=== PATIENT | female | born 1980 | race Caucasian/White ===

== ENCOUNTER 2016-10-10 19:05 | Emergency (ER) | payer OTHER ==
[2016-10-10] MEDS ORDERED: SODIUM CHLORIDE 0.9% 1,000 ML IV STA (19:57)
[2016-10-10] MEDS ORDERED: DICYCLOMINE 20 MG TAB PO STA (19:57)
[2016-10-10] MEDS ORDERED: ONDANSETRON 4 MG/2 ML VIAL IVP STA (19:57)
[2016-10-10] MEDS ORDERED: KETOROLAC 30 MG/ML 1 ML VIAL IVP STA (19:58)
--- NOTE | 2016-10-10 20:26 | ED ---
Abdominal Pain HPI - General Chief Complaint: Abdominal Pain Stated Complaint: [facility] Sent/Abd Pain/Into chest Time Seen by Provider: 10/10/16 19:41 Source: patient Mode of arrival: ambulatory Limitations: no limitations - History of Present Illness Initial Comments: The patient is a 36-year-old female who presents to ED with a chief complaint of abdominal pain. Patient states that she has had sporadic pain in her abdomen. She states that the pain often comes after she's had a meal. She states that the pain typically begins in the right upper quadrant and migrates to the epigastrium and up to the substernal region. Patient describes the pain as crampy in nature. The patient notes that today her pain was located in the right lower quadrant and then migrated up to the epigastric region. Patient is also complaining of pain along the left side of her face. She states that she believes that she may be suffering from chronic sinusitis. She feels as if there is a lot of pressure within her head. The patient does have a history of cholecystectomy. Patient denies any fevers or chills. Patient denies any nausea or vomiting. She states that she's been able to tolerate by mouth like normal. The patient denies any dysuria. She initially went to the [facility] , where she had a UA performed that demonstrated no evidence of infection. She also had a negative urine . The patient had an EKG performed that was within normal limits. - Related Data Home Medications Medication Instructions Recorded Confirmed ALPRAZolam [Xanax] 0.25 mg PO TID PRN 05/03/15 10/10/16 Levothyroxine Sodium [Synthroid] 25 mcg PO DAILY 05/03/15 10/10/16 Azithromycin [Zithromax Z-pack] See Taper PO DAILY 10/10/16 10/10/16 Citalopram Hydrobromide [CeleXA] 10 mg PO DAILY 10/10/16 10/10/16 Loratadine-Pseudoeph 10-240 mg 1 tab PO DAILY 10/10/16 10/10/16 [Claritin-D 24 Hr] Previous Rx's Medication Instructions Recorded Dicyclomine [Bentyl] 20 mg PO QID PRN #20 tablet 10/10/16 Allergies Allergy/AdvReac Type Severity Reaction Status Date / Time No Known Allergies Allergy Verified 10/10/16 19:39 Review of Systems ROS Statement: Those systems with pertinent positive or pertinent negative responses have been documented in the HPI. ROS Other: All systems not noted in ROS Statement are negative. Constitutional: Denies: fever, chills, weakness Eyes: Denies: eye pain, eye discharge, vision change ENT: Reports: ear pain (left ear), congestion. Denies: throat pain, dental pain , epistaxis Respiratory: Denies: cough, dyspnea, wheezes, hemoptysis Cardiovascular: Denies: chest pain, palpitations, dyspnea on exertion Endocrine: Denies: fatigue Gastrointestinal: Reports: abdominal pain. Denies: nausea, vomiting, diarrhea, constipation, hematemesis, melena Genitourinary: Denies: urgency, dysuria, frequency Musculoskeletal: Denies: back pain Skin: Denies: rash Neurological: Denies: headache, weakness, numbness, paresthesias Psychiatric: Denies: anxiety Past Medical History Past Medical History: GERD/Reflux, Skin Disorder, Thyroid Disorder Additional Past Medical History / Comment(s): migraines, psoriasis, has gallstones, resolving bronchitis-just finished prednisone,still on antibiotic, past hx. cat scratch fever History of Any Multi-Drug Resistant Organisms: None Reported Past Surgical History: Cholecystectomy Additional Past Surgical History / Comment(s): had surgery on upper thigh near groin to remove lump due to cat scratch fever Past Anesthesia/Blood Transfusion Reactions: No Reported Reaction Past Psychological History: Anxiety Smoking Status: Current some day smoker Past Alcohol Use History: Occasional Past Drug Use History: None Reported - Past Family History Mother Family Medical History: No Reported History General Exam Limitations: no limitations General appearance: alert, in no apparent distress Head exam: Present: atraumatic, normocephalic Eye exam: Present: normal appearance, PERRL Pupils: Present: normal accommodation ENT exam: Present: normal exam, normal oropharynx Neck exam: Present: normal inspection Respiratory exam: Present: normal lung sounds bilaterally. Absent: respiratory distress, wheezes, rales, rhonchi, stridor Cardiovascular Exam: Present: regular rate, normal rhythm GI/Abdominal exam: Present: soft. Absent: distended, tenderness, guarding, rebound, rigid Extremities exam: Present: normal inspection Back exam: Present: normal inspection Neurological exam: Present: alert, oriented X3 Psychiatric exam: Present: normal affect Skin exam: Present: warm, dry, intact Course Vital Signs 10/10/16 10/10/16 19:22 21:40 Temperature 98.2 F 98.6 F Pulse Rate 62 53 L Respiratory 16 18 Rate Blood Pressure 135/87 103/56 O2 Sat by Pulse 96 99 Oximetry Medical Decision Making - Medical Decision Making The patient is a 36-year-old female who presents to ED with a chief complaint of abdominal pain. Patient states that the pain is crampy in nature. Predominantly located in the right side of the abdomen with radiation in the epigastric region. Patient notes that the pain occurs after she eats meals. Patient no longer has a gallbladder. Patient denies any fevers or chills. Patient has been able to eat and drink as normal. Patient nontender on abdominal examination, noted to be gassy. Patient also complaining of left ear pain. On examination, patient appears to have no evidence of any ear infection. Patient does have slight effusion on the left side. Counseled patient that she is likely suffering from sinus congestion. Check CBC, BMP, mag. Check liver profile and lipase. Check ultrasound abdomen. Reviewed EKG and urinalysis from [facility]. Will order repeat EKG here. 9:31 PM Updated patient of overall findings, including normal Ultrasound Abdomen. Patient's CBD noted to be within normal limits. Patient counseled to follow-up with Gastroenterology. Patient provided with contract information for Dr. Gamboa , who is environmental health sanitarian today. Patient will be discharged for Bentyl to use at home q6 PRN. I have counseled the patient on how to use this medication appropriately. The patient has also been counseled to use Flonase to help with her sinus congestion. The patient notes that she is pain-free at the time of discharge. I have answered all of the patient's questions to her satisfaction. Encourage patient to return to the ED should her symptoms worsen. - Lab Data Result diagrams: 10/10/16 20:20 10/10/16 20:20 Lab Results 10/10/16 10/10/16 Range/Units 20:20 20:20 WBC 4.1 (3.8-10.6) k/uL RBC 4.31 (3.80-5.40) m/uL Hgb 13.6 (11.4-16.0) gm/dL Hct 38.5 (34.0-46.0) % MCV 89.5 (80.0-100.0) fL MCH 31.6 (25.0-35.0) pg MCHC 35.3 (31.0-37.0) g/dL RDW 12.1 (11.5-15.5) % Plt Count 188 (150-450) k/uL Neutrophils % 60 % Lymphocytes % 16 % Monocytes % 11 % Eosinophils % 6 % Basophils % 2 % Neutrophils # 2.5 (1.3-7.7) k/uL Lymphocytes # 0.7 L (1.0-4.8) k/uL Monocytes # 0.5 (0-1.0) k/uL Eosinophils # 0.3 (0-0.7) k/uL Basophils # 0.1 (0-0.2) k/uL Sodium 143 (137-145) mmol/L Potassium 4.0 (3.5-5.1) mmol/L Chloride 105 (98-107) mmol/L Carbon Dioxide 25 (22-30) mmol/L Anion Gap 13 mmol/L BUN 13 (7-17) mg/dL Creatinine 0.70 (0.52-1.04) mg/dL Est GFR (MDRD) Af Amer >60 (>60 ml/min/1.73 sqM) Est GFR (MDRD) Non-Af >60 (>60 ml/min/1.73 sqM) Glucose 82 (74-99) mg/dL Calcium 9.4 (8.4-10.2) mg/dL Magnesium 2.1 (1.6-2.3) mg/dL Total Bilirubin 0.5 (0.2-1.3) mg/dL AST 22 (14-36) U/L ALT 30 (9-52) U/L Alkaline Phosphatase 54 (38-126) U/L Total Protein 7.1 (6.3-8.2) g/dL Albumin 4.5 (3.5-5.0) g/dL Lipase 99 (23-300) U/L - EKG Data -: EKG Interpreted by Me 10/10/16 20:25 EKG demonstrates NSR. There are no concerning ST-T changes. The TN and QRS intervals are within normal limits. Disposition Clinical Impression: Abdominal pain Disposition: HOME SELF-CARE Condition: Good Instructions: Abdominal Pain (ED) Additional Instructions: Please return to the ED should you have worsening symptoms at home, particularly if associated with fever or chills. Prescriptions: Dicyclomine [Bentyl] 20 mg PO QID PRN #20 tablet PRN Reason: abdominal pain Referrals: Aldo Mario MD [Primary Care Provider] - 10/17/16 Shy Gamboa MD [STAFF PHYSICIAN] - 10/24/16 (Dr. Begum is a [employer]. I would recommend calling to schedule an appointment within the next two weeks) Time of Disposition: 21:31
[2016-10-10 20:42] LABS: ALT 30 U/L (9-52); AST 22 U/L (14-36); Alkaline Phosphatase 54 U/L (38-126); Anion Gap 13 mmol/L; Blood Urea Nitrogen 13 mg/dL (7-17); Calcium 9.4 mg/dL (8.4-10.2); Carbon Dioxide 25 mmol/L (22-30); Chloride 105 mmol/L (98-107); Glucose 82 mg/dL (74-99); Magnesium 2.1 mg/dL (1.6-2.3); Non-African American GFR(MDRD) >60 (>60 ml/min/1.73 sqM); Sodium 143 mmol/L (137-145); Total Bilirubin 0.5 mg/dL (0.2-1.3); Total Protein 7.1 g/dL (6.3-8.2)
[2016-10-10 20:43] LABS: CH 31.6; CHCM 35.5; HDW 2.37; HGB 13.6 gm/dL (11.4-16.0)
[2016-10-10 20:45] LABS: Basophils # (A) 0.1 k/uL (0-0.2); Basophils % (A) 2 %; Eosinophils # (A) 0.3 k/uL (0-0.7); Eosinophils % (A) 6 %; HCT 38.5 % (34.0-46.0); Luc # (Auto) 0.18; Luc % (Auto) 5; Lymphocytes # (A) 0.7 k/uL (1.0-4.8); Lymphocytes % (A) 16 %; MCH 31.6 pg (25.0-35.0); MCHC 35.3 g/dL (31.0-37.0); MCV 89.5 fL (80.0-100.0); Mean Platelet Volume 6.9; Monocytes # (A) 0.5 k/uL (0-1.0); Monocytes % (A) 11 %; Neutrophils # (A) 2.5 k/uL (1.3-7.7); Neutrophils % (A) 60 %; RBC 4.31 m/uL (3.80-5.40); RDW 12.1 % (11.5-15.5); WBC 4.1 k/uL (3.8-10.6); WBC (Perox) 4.16
--- NOTE | 2016-10-10 21:14 | US ---
EXAMINATION TYPE: US abdomen complete DATE OF EXAM: 10/10/2016 8:50 PM COMPARISON: 11/02/2013 CLINICAL HISTORY: abdominal pain. RLQ pain that radiates up through chest, cholecystectomy 2014 EXAM MEASUREMENTS: Liver Length: 17.2cm Gallbladder Wall: N/A cm CBD: 0.3cm Spleen: 10.9cm Right Kidney: 11.4 x 5.0 x 4.2cm Left Kidney: 11.6 x 4.9 x 5.3cm TECHNOLOGIST IMPRESSION: Pancreas: wnl Liver: wnl Gallbladder: Surgically absent Evidence for sonographic Petersen's sign: no CBD: wnl Spleen: wnl Right Kidney: wnl Left Kidney: wnl Upper IVC: wnl Abd Aorta: wnl The liver is homogenous. The intrahepatic portion of the IVC and proximal abdominal aorta are within normal limits. There is no evidence of cholelithiasis. Common bile duct is unremarkable. The visu alized portions of the pancreas are homogenous. The spleen is unremarkable. Kidneys are symmetric a nd free of hydronephrosis. No renal lesions are seen. IMPRESSION: Negative complete abdominal sonogram. No dilated ducts. No adverse change compared to old exam.
[2016-10-10 21:51] VITALS: BP 103/56; PULSE 53; RESP 18; TEMP 98.6
== END 2016-10-10 21:40 | disposition home or self-care (01) ==
LOC: EC 19:05
DX: R10.13 Epigastric pain (principal); R09.81 Nasal congestion; E07.9 Disorder of thyroid, unspecified; F17.200 Nicotine dependence, unspecified, uncomplicated; Z79.899 Other long term (current) drug therapy
CPT/HCPCS: 36415; 93005; 80053; 83690; 83735; 85025; 76700; 99284; 96374; 96375; 96361; J2405; J1885

== ENCOUNTER 2016-11-07 20:48 | Emergency (ER) | payer OTHER ==
[2016-11-07 20:59] VITALS: RESP 18
[2016-11-07] MEDS ORDERED: FAMOTIDINE 20 MG/2 ML VIAL IV STA (21:36)
--- NOTE | 2016-11-07 21:37 | ED ---
General Adult HPI - General Chief complaint: Abdominal Pain Stated complaint: abdominal pain Time Seen by Provider: 11/07/16 21:03 Source: patient, RN notes reviewed, old records reviewed Mode of arrival: ambulatory Limitations: no limitations - History of Present Illness Initial comments: 36-year-old female with history of recurrent abdominal pain presenting for abdominal pain and nausea. Patient states that this began shortly after eating this evening. States that it reached intensity and then improved. She states she then had return of the pain and came to the ED. She states she has some nausea associated but has not vomited. Patient states that similar recurrent abdominal pain over the past 2-4 years. She does have a history of cholecystectomy. She's never had an EGD. She's not currently taking any medications other than Bentyl when necessary - Related Data Home Medications Medication Instructions Recorded Confirmed ALPRAZolam [Xanax] 0.25 mg PO TID PRN 05/03/15 10/10/16 Levothyroxine Sodium [Synthroid] 25 mcg PO DAILY 05/03/15 10/10/16 Azithromycin [Zithromax Z-pack] See Taper PO DAILY 10/10/16 10/10/16 Citalopram Hydrobromide [CeleXA] 10 mg PO DAILY 10/10/16 10/10/16 Loratadine-Pseudoeph 10-240 mg 1 tab PO DAILY 10/10/16 10/10/16 [Claritin-D 24 Hr] Previous Rx's Medication Instructions Recorded Dicyclomine [Bentyl] 20 mg PO QID PRN #20 tablet 10/10/16 Dicyclomine [Bentyl] 20 mg PO QID PRN #16 tablet 11/07/16 Omeprazole 20 mg PO DAILY #30 cap 11/07/16 Allergies Allergy/AdvReac Type Severity Reaction Status Date / Time No Known Allergies Allergy Verified 11/07/16 20:59 Review of Systems ROS Statement: Those systems with pertinent positive or pertinent negative responses have been documented in the HPI. ROS Other: All systems not noted in ROS Statement are negative. Past Medical History Past Medical History: GERD/Reflux, Skin Disorder, Thyroid Disorder Additional Past Medical History / Comment(s): migraines, psoriasis, has gallstones, resolving bronchitis-just finished prednisone,still on antibiotic, past hx. cat scratch fever History of Any Multi-Drug Resistant Organisms: None Reported Past Surgical History: Cholecystectomy Additional Past Surgical History / Comment(s): had surgery on upper thigh near groin to remove lump due to cat scratch fever Past Anesthesia/Blood Transfusion Reactions: No Reported Reaction Past Psychological History: Anxiety Smoking Status: Current some day smoker Past Alcohol Use History: Occasional Past Drug Use History: None Reported - Past Family History Mother Family Medical History: No Reported History General Exam - General Exam Comments Initial Comments: General: Awake and Alert. No acute distress. Does not appear acutely ill. Eyes: WESLEY, EOM intact. No nystagmus. No scleral icterus. HENT: Atraumatic, normocephalic. Mucous membranes moist. Trachea midline. Neck: The neck is supple, there is no tenderness or JVD. Cardiovascular: Regular rate and rhythm. No murmur, rub, or gallop is appreciated. Distal pulses intact. Respiratory: Lungs are clear to auscultation bilaterally. No wheezes, rales, rhonchi. No respiratory distress. Gastrointestinal: Soft, mild epigastric tenderness. No rebound or guarding. Non -distended. No masses or organomegaly noted. No CVA tenderness. Musculoskeletal: No tenderness. Normal ROM. No gross deformity. No strength deficits. Neurological: A&Ox3. CN II-XII grossly intact, There are no obvious motor or sensory deficits. Coordination appears grossly intact. Speech is normal. Skin: Skin is warm and dry and no rashes or lesions are noted. Psychiatric: Cooperative, appropriate mood & affect, normal judgment. Limitations: no limitations Course Vital Signs 11/07/16 11/07/16 11/07/16 20:58 22:30 23:12 Temperature 98.1 F 98.5 F 97.9 F Pulse Rate 82 76 74 Respiratory 18 18 18 Rate Blood Pressure 123/82 115/70 125/80 O2 Sat by Pulse 97 100 100 Oximetry Medical Decision Making - Medical Decision Making 36-year-old female presenting for recurrent abdominal pain. Initial exam with mild epigastric tenderness but no evidence of acute peritonitis. Patient recently was seen for workup in September including abdominal ultrasound which was unremarkable. Patient without any significant pain on exam, and declines any pain medications. Was given IV fluids and Pepcid. Laboratory grossly unremarkable. LFTs within normal limits. Lipase negative. Patient reevaluated and remained stable. No active pain at this time. Had long discussion about possible etiologies of abdominal pain. Discussed importance of continued outpatient follow-up with GI and PCP. Patient states she is at a point with Dr. Gamboa coming up in 2 weeks. Discussion she will likely require an EGD and further outpatient testing. Discussed starting her on omeprazole at this time for possible underlying gastritis. Discussed using Bentyl as needed, Rx refill provided. Discussed concerning signs symptoms for immediate return to the ED. Patient is agreeable with plan and discharge home. - Lab Data Result diagrams: 11/07/16 21:40 11/07/16 21:40 Lab Results 11/07/16 11/07/16 11/07/16 Range/Units 21:40 21:40 22:00 WBC 5.3 (3.8-10.6) k/uL RBC 4.71 (3.80-5.40) m/uL Hgb 14.8 (11.4-16.0) gm/dL Hct 43.0 (34.0-46.0) % MCV 91.2 (80.0-100.0) fL MCH 31.4 (25.0-35.0) pg MCHC 34.5 (31.0-37.0) g/dL RDW 11.9 (11.5-15.5) % Plt Count 196 (150-450) k/uL Neutrophils % 68 % Lymphocytes % 19 % Monocytes % 4 % Eosinophils % 4 % Basophils % 1 % Neutrophils # 3.6 (1.3-7.7) k/uL Lymphocytes # 1.0 (1.0-4.8) k/uL Monocytes # 0.2 (0-1.0) k/uL Eosinophils # 0.2 (0-0.7) k/uL Basophils # 0.0 (0-0.2) k/uL Sodium 144 (137-145) mmol/L Potassium 3.5 (3.5-5.1) mmol/L Chloride 104 (98-107) mmol/L Carbon Dioxide 27 (22-30) mmol/L Anion Gap 13 mmol/L BUN 9 (7-17) mg/dL Creatinine 0.76 (0.52-1.04) mg/dL Est GFR (MDRD) Af Amer >60 (>60 ml/min/1.73 sqM) Est GFR (MDRD) Non-Af >60 (>60 ml/min/1.73 sqM) Glucose 73 L (74-99) mg/dL Calcium 9.4 (8.4-10.2) mg/dL Total Bilirubin 0.5 (0.2-1.3) mg/dL AST 22 (14-36) U/L ALT 25 (9-52) U/L Alkaline Phosphatase 57 (38-126) U/L Total Protein 8.0 (6.3-8.2) g/dL Albumin 5.1 H (3.5-5.0) g/dL Lipase 163 (23-300) U/L Urine Color Urine Appearance (Clear) Urine pH (5.0-8.0) Ur Specific [place] (1.001-1.035) Urine Protein (Negative) Urine Glucose (UA) (Negative) Urine Ketones (Negative) Urine Blood (Negative) Urine Nitrite (Negative) Urine Bilirubin (Negative) Urine Urobilinogen (<2.0) mg/dL Ur Leukocyte Esterase (Negative) Urine HCG, Qual Not Detected (Not Detectd) 11/07/16 Range/Units 22:00 WBC (3.8-10.6) k/uL RBC (3.80-5.40) m/uL Hgb (11.4-16.0) gm/dL Hct (34.0-46.0) % MCV (80.0-100.0) fL MCH (25.0-35.0) pg MCHC (31.0-37.0) g/dL RDW (11.5-15.5) % Plt Count (150-450) k/uL Neutrophils % % Lymphocytes % % Monocytes % % Eosinophils % % Basophils % % Neutrophils # (1.3-7.7) k/uL Lymphocytes # (1.0-4.8) k/uL Monocytes # (0-1.0) k/uL Eosinophils # (0-0.7) k/uL Basophils # (0-0.2) k/uL Sodium (137-145) mmol/L Potassium (3.5-5.1) mmol/L Chloride (98-107) mmol/L Carbon Dioxide (22-30) mmol/L Anion Gap mmol/L BUN (7-17) mg/dL Creatinine (0.52-1.04) mg/dL Est GFR (MDRD) Af Amer (>60 ml/min/1.73 sqM) Est GFR (MDRD) Non-Af (>60 ml/min/1.73 sqM) Glucose (74-99) mg/dL Calcium (8.4-10.2) mg/dL Total Bilirubin (0.2-1.3) mg/dL AST (14-36) U/L ALT (9-52) U/L Alkaline Phosphatase (38-126) U/L Total Protein (6.3-8.2) g/dL Albumin (3.5-5.0) g/dL Lipase (23-300) U/L Urine Color Light Yellow Urine Appearance Clear (Clear) Urine pH 5.5 (5.0-8.0) Ur Specific [place] 1.005 (1.001-1.035) Urine Protein Negative (Negative) Urine Glucose (UA) Negative (Negative) Urine Ketones Negative (Negative) Urine Blood Negative (Negative) Urine Nitrite Negative (Negative) Urine Bilirubin Negative (Negative) Urine Urobilinogen <2.0 (<2.0) mg/dL Ur Leukocyte Esterase Negative (Negative) Urine HCG, Qual (Not Detectd) Disposition Clinical Impression: Nonspecific abdominal pain Disposition: HOME SELF-CARE Condition: Stable Instructions: Abdominal Pain (ED), Gastritis (ED) Prescriptions: Dicyclomine [Bentyl] 20 mg PO QID PRN #16 tablet PRN Reason: abdominal pain Omeprazole 20 mg PO DAILY #30 cap Referrals: Aldo Mario MD [Primary Care Provider] - 1-2 days Shy Gamboa MD [STAFF PHYSICIAN] - 1-2 days Time of Disposition: 23:12
[2016-11-07 21:55] LABS: Basophils % (A) 1 %; CH 31.6; CHCM 34.8; Eosinophils # (A) 0.2 k/uL (0-0.7); Eosinophils % (A) 4 %; HDW 2.34; HGB 14.8 gm/dL (11.4-16.0); Luc # (Auto) 0.22; Luc % (Auto) 4; Lymphocytes % (A) 19 %; MCH 31.4 pg (25.0-35.0); MCHC 34.5 g/dL (31.0-37.0); MCV 91.2 fL (80.0-100.0); Monocytes # (A) 0.2 k/uL (0-1.0); Monocytes % (A) 4 %; Neutrophils # (A) 3.6 k/uL (1.3-7.7); Neutrophils % (A) 68 %; RBC 4.71 m/uL (3.80-5.40); RDW 11.9 % (11.5-15.5); WBC 5.3 k/uL (3.8-10.6); WBC (Perox) 5.37
[2016-11-07 22:01] LABS: ALT 25 U/L (9-52); AST 22 U/L (14-36); Alkaline Phosphatase 57 U/L (38-126); Anion Gap 13 mmol/L; Blood Urea Nitrogen 9 mg/dL (7-17); Calcium 9.4 mg/dL (8.4-10.2); Carbon Dioxide 27 mmol/L (22-30); Chloride 104 mmol/L (98-107); Glucose 73 mg/dL (74-99); Non-African American GFR(MDRD) >60 (>60 ml/min/1.73 sqM); Potassium 3.5 mmol/L (3.5-5.1); Sodium 144 mmol/L (137-145); Total Bilirubin 0.5 mg/dL (0.2-1.3)
[2016-11-07 22:09] LABS: Appearance,Urine Clear (Clear); Bilirubin,Urine Negative (Negative); Glucose,Urine (UA) Negative (Negative); Ketones,Urine Negative (Negative); Leukocyte Esterase,Urine Negative (Negative); Nitrite,Urine Negative (Negative); PH, Urine 5.5 (5.0-8.0); Protein,Urine Negative (Negative); Specific Gravity,Urine 1.005 (1.001-1.035); UA Billing (MACRO vs. MICRO) CHEM; Urobilinogen,Urine <2.0 mg/dL (<2.0)
[2016-11-07 23:12] VITALS: BP 125/80; PULSE 74; TEMP 97.9
== END 2016-11-07 23:31 | disposition home or self-care (01) ==
LOC: EC 20:48
DX: R10.9 Unspecified abdominal pain (principal); Z79.899 Other long term (current) drug therapy; F17.200 Nicotine dependence, unspecified, uncomplicated
CPT/HCPCS: 36415; 80053; 81003; 81025; 83690; 85025; 96374; 99284

== ENCOUNTER 2016-12-24 10:20 | Day surgery (SDC) | payer OTHER ==
[2016-12-19 13:25] VITALS: BMI 21.7
[~2016-12-24 10:20] MED LIST: LACTATED RINGERS 1,000 ML IV SCH; LIDOCAINE 1% 20 ML VIAL (10MG/ML) FOR IV START INTRADERMA PRN
[2016-12-24 10:52] VITALS: RESP 16; TEMP 98.7
[2016-12-24] MEDS ORDERED: PROPOFOL 10 MG/ML 20 ML VIAL IV ONE (11:55)
[2016-12-24] MEDS ORDERED: LIDOCAINE 1% INJ 10MG/ML (20 ML MDV) ONE (11:55)
[2016-12-24] MEDS ORDERED: GLYCOPYRROLATE 0.2 MG/ML 2 ML VIAL ONE (11:55)
--- NOTE | 2016-12-24 12:12 | P.PCN ---
Date of Procedure: 12/24/16 Procedure(s) Performed: Brief history: Patient is a pleasant 86-year-old white female, scheduled for an elective upper endoscopy as well as colonoscopy as a part of evaluation of abdominal pain, abdominal bloating and change in bowel habits for the last several years duration. Lately her symptoms have been progressively getting worse. Pain is mostly in epigastric and right upper quadrant area and occasionally radiates into the chest and back. She has some nausea but no emesis. Has rectal urgency and occasional diarrhea. She is hence scheduled for an upper endoscopy as well as colonoscopy to evaluate further. Procedure performed: Esophagogastroduodenoscopy with biopsy Colonoscopy with biopsy Preoperative diagnosis: Epigastric, right upper quadrant abdominal pain Abdominal bloating and change in bowel habits Anesthesia: MAC Procedure: After informed consent was obtained from the patient was brought into the endoscopy unit and IV sedation was administered by anesthesia under continuous monitoring. Initially upper endoscopy was done. The Olympus GF 160 video endoscope was inserted inserted into the mouth and esophagus intubated without any difficulty and was gradually advanced into the stomach and duodenum and carefully examined. The bulb and second part of the duodenum appeared normal. Biopsies were done from this area to rule out celiac disease. The scope was then withdrawn into the stomach adequately insufflated with air and upon careful examination the antrum had mild gastritis and biopsies were done from this area. The body, cardia and fundus appeared normal. The scope was then withdrawn into the esophagus. Small hiatal hernia noted. The GE junction was located at 35 cm to the incisors. There was a short tongue of Villela's appearing mucosa extending proximal to the GE junction and this was biopsied. Rest of the esophagus appeared normal. Patient tolerated the procedure well. At this time the patient continued to remain sedation. Initial digital rectal examination was normal. Olympus CF 160 video colonoscope was then inserted into the rectum and gradually advanced to the cecum without any difficulty. Careful examination was performed as the scope was gradually being withdrawn. The prep was excellent. The cecum, ascending colon, transverse colon, descending colon, sigmoid colon and rectum appeared normal. Random biopsies were done from ascending and descending colon to rule out Ashok scope/ collagenous colitis. Retroflexion was performed in the rectum and no lesions were noted. Patient tolerated the procedure well. Impression: 1. Upper endoscopy revealed mild gastritis, small hiatal hernia and short segment Villela's esophagus 2. Colonoscopy was essentially within normal limits with no evidence of colitis or colorectal neoplasia Recommendations: Findings of this examination were discussed with the patient as well as her family. She was advised to follow with the biopsy results. She will be seen in the office in 3 weeks.
[2016-12-24 12:42] VITALS: BP 113/79; PULSE 66
== END 2016-12-24 13:05 | disposition home or self-care (01) ==
LOC: ORWHC2ENDO 10:20
PROVIDERS: ATTEND Internal Medicine Gastroenterology
DX: K44.9 Diaphragmatic hernia without obstruction or gangrene (principal); K29.50 Unspecified chronic gastritis without bleeding; K22.70 Barrett's esophagus without dysplasia; R19.4 Change in bowel habit; F17.200 Nicotine dependence, unspecified, uncomplicated; E07.9 Disorder of thyroid, unspecified; F32.9 Major depressive disorder, single episode, unspecified; K21.9 Gastro-esophageal reflux disease without esophagitis; Z79.899 Other long term (current) drug therapy
CPT/HCPCS: 81025; 88305; 88342; 45380; 43239; J2001; J2704

== ENCOUNTER 2019-10-19 08:28 | Day surgery (SDC) | payer OTHER ==
[2019-10-14 14:44] VITALS: BMI 22.6
[~2019-10-19 08:28] MED LIST changes: +LIDOCAINE 1% (10MG/ML) FOR IV START INTRADERMA PRN; -LIDOCAINE 1% 20 ML VIAL (10MG/ML) FOR IV START INTRADERMA PRN
[2019-10-19 08:53] VITALS: TEMP 96.8
[2019-10-19] MEDS ORDERED: LIDOCAINE 1% INJ 10MG/ML (20 ML MDV) ONE (09:15)
[2019-10-19] MEDS ORDERED: PROPOFOL 10 MG/ML 20 ML VIAL IV ONE (09:15)
--- NOTE | 2019-10-19 09:27 | P.PCN ---
Date of Procedure: 10/19/19 Procedure(s) Performed: BRIEF HISTORY: Patient is a 39-year-old, pleasant, white female, scheduled for an upper endoscopy as a part of evaluation of GERD/intermittent chest pain and abdominal bloating. Last EGD 2 years ago showed short segment Villela's esophagus. PROCEDURE PERFORMED: Esophagogastroduodenoscopy with biopsy. PREOPERATIVE DIAGNOSIS: Surveillance Of Villela's esophagus. IV sedation per anesthesia. PROCEDURE: After informed consent was obtained, the patient was brought into the endoscopy unit. IV sedation was administered by Anesthesia under continuous monitoring. Initially the Olympus GIF-140 video endoscope was inserted into the mouth. Esophagus intubated without any difficulty. It was gradually advanced into the stomach and duodenum and carefully examined. The bulb and the second part of the duodenum appeared normal. Biopsies were done from this area to rule out celiac disease. The scope at this time was withdrawn to the stomach, adequately insufflated with air, and upon careful examination, mucosa of the antrum, body, cardia and the fundus appeared normal. The scope was then withdrawn into the esophagus. The GE junction was located at 35 cm from the incisors. There was a 1 cm flat appearing mucosa extending proximal to the GE junction which was biopsied. Also there was a superficial erosion at the GE junction consistent with LA grade a reflux esophagitis. The rest of esophagus appeared normal and the patient tolerated the procedure well. IMPRESSION: 1. Short segment Villela's esophagus status post biopsy. 2. Small hiatal hernia and LA grade a reflux esophagitis 3 Mild antral gastritis.. RECOMMENDATIONS: The findings of this examination were discussed with the patientas well as her family. She was advised to continue with omeprazole 20 mg daily half hour before dinnertime and follow antireflux measures. She can have a repeat upper endoscopy in 2-3 years..
[2019-10-19 10:03] VITALS: BP 117/83; PULSE 66; RESP 16
== END 2019-10-19 10:20 | disposition home or self-care (01) ==
LOC: ORWHC2ENDO 08:28
PROVIDERS: ATTEND Internal Medicine Gastroenterology
DX: K22.70 Barrett's esophagus without dysplasia (principal); K29.50 Unspecified chronic gastritis without bleeding; K21.0 Gastro-esophageal reflux disease with esophagitis; K44.9 Diaphragmatic hernia without obstruction or gangrene; F41.9 Anxiety disorder, unspecified; G43.909 Migraine, unspecified, not intractable, without status migrainosus; L40.9 Psoriasis, unspecified; K58.9 Irritable bowel syndrome, unspecified; F17.210 Nicotine dependence, cigarettes, uncomplicated; Z79.899 Other long term (current) drug therapy
CPT/HCPCS: 81025; 88305; 43239; J2001; J2704

== ENCOUNTER → 2022-09-17 | Outpatient (CLI) | payer OTHER ==
--- NOTE | 2022-09-17 09:06 | US ---
EXAMINATION TYPE: US abdomen complete DATE OF EXAM: 09/17/2022 COMPARISON: 2017 abd US CLINICAL HISTORY: R10.9 Abdominal Pain. general feeling of unwell, abd pain TECHNIQUE: Multiple sonographic images of the abdomen are obtained. FINDINGS: EXAM MEASUREMENTS: Liver Length: 15.6 cm CBD: 0.3 cm Spleen: 10.1 cm Right Kidney: 10.5 x 4.2 x 5.7 cm Left Kidney: 12.1 x 5.0 x 4.5 cm WARRANT CLERK NOTES: Pancreas: wnl Liver: wnl Gallbladder: surgically absent Evidence for sonographic Petersen's sign: no CBD: wnl Spleen: wnl Right Kidney: wnl Left Kidney: wnl Upper IVC: wnl Abd Aorta: wnl Appendix: appears wnl as seen The liver is homogenous. The intrahepatic portion of the IVC and proximal abdominal aorta are within normal limits. Common bile duct is unremarkable. The visualized portions of the pancreas are homoge nous. The spleen is unremarkable. Kidneys are symmetric and free of hydronephrosis. No renal lesio ns are seen. IMPRESSION: 1. Unremarkable study
== END | disposition home or self-care (01) ==
LOC: RADUSWWP 07:53
PROVIDERS: ATTEND Student in an Organized Health Care Education/Training Program
DX: E03.9 Hypothyroidism, unspecified (principal); R10.9 Unspecified abdominal pain
CPT/HCPCS: 76700; 84443

== ENCOUNTER → 2023-07-15 | Outpatient (CLI) | payer OTHER ==
[2023-07-15 16:18] LABS: Basophils # (A) 0.02 X 10*3/uL (0.00-0.10); Basophils % (A) 0.4 %; Eosinophils # (A) 0.09 X 10*3/uL (0.04-0.35); Eosinophils % (A) 1.8 %; Lymphocytes # (A) 1.01 X 10*3/uL (0.90-5.00); Lymphocytes % (A) 20.4 %; MCH 30.2 pg (27.0-32.0); MCHC 32.6 g/dL (32.0-37.0); MCV 92.7 FL (80.0-97.0); Mean Platelet Volume 9.4 FL (9.5-12.2); Monocytes # (A) 0.36 X 10*3/uL (0.20-1.00); Monocytes % (A) 7.3 %; NRBC Per 100 WBC 0 X 10*3/uL (0.00-0.01); Neutrophils # (A) 3.45 X 10*3/uL (1.80-7.70); Neutrophils % (A) 69.9 %; Platelet Count 235 X 10*3/uL (140-440); RBC 4.64 X 10*6/uL (4.10-5.20); RDW 12.7 % (11.5-14.5); WBC 4.94 X 10*3/uL (4.50-10.00)
[2023-07-15 16:24] LABS: ALT 14 U/L (8-44); AST 19 U/L (13-35); Albumin 4.7 g/dL (3.8-4.9); Albumin/Globulin Ratio 1.96 Ratio (1.60-3.17); Alkaline Phosphatase 56 U/L (41-126); BUN/Creat Ratio 11.88 Ratio (12.00-20.00); Blood Urea Nitrogen 9.5 mg/dL (9.0-27.0); Calcium 9.7 mg/dL (8.7-10.3); Carbon Dioxide 24.7 mmol/L (21.6-31.8); Chloride 104 mmol/L (96-109); Ferritin 89.3 ng/mL (10.0-291.0); Globulin 2.4 g/dL (1.6-3.3); Glucose 94 mg/dL (70-110); Iron 61 UG/DL (50-170); Potassium 4.5 mmol/L (3.5-5.5); Rheumatoid Factor, Qnt <15 IU/mL (0-15); Sodium 141 mmol/L (135-145); Total Bilirubin 0.4 mg/dL (0.3-1.2); Total Protein 7.1 g/dL (6.2-8.2)
[2023-07-15 16:25] LABS: T4, Free (Free Thyroxine) 1.31 ng/dL (0.80-1.80)
[2023-07-15 17:56] LABS: Anti-DNA, DS unit <1.0 IU/mL; DNA Double-Stranded Negative (Negative)
[2023-07-15 18:10] LABS: Thyroid Peroxidase Antibodies 32.5 U/mL (0.0-33.0)
[2023-07-15 22:42] LABS: Cyclic Citrull Pep IgG Unit 1.8 U/mL (<=3.9); Cyclic Citrullinated Pep IgG Negative (Negative)
== END | disposition home or self-care (01) ==
LOC: LABWHC1 09:45
PROVIDERS: ATTEND Dermatology MOHS-Micrographic Surgery
DX: E03.9 Hypothyroidism, unspecified (principal); B35.3 Tinea pedis; L40.9 Psoriasis, unspecified; L65.9 Nonscarring hair loss, unspecified; R53.83 Other fatigue; K58.0 Irritable bowel syndrome with diarrhea; B35.1 Tinea unguium
CPT/HCPCS: 36415; 80053; 82607; 82728; 82746; 83036; 83540; 84439; 84443; 84481; 85025; 86038; 86200; 86225; 86376; 86431

== ENCOUNTER → 2023-12-07 | Outpatient (CLI) | payer OTHER ==
--- NOTE | 2023-12-08 11:56 | US ---
EXAMINATION TYPE: US thyroid st tissue head/neck DATE OF EXAM: 12/07/2023 COMPARISON: NONE CLINICAL INDICATION: Female, 43 years old with history of R22.1 LOCALIZED SWELLING, MASS AND LUMP, NE CK; Swelling x 1 year. Patient has felt lump x a few months. Pain x 2 weeks. No recent sickness. Scanned right submandibular area at patient's palpable area of concern. Left submandibular area was scanned for comparison. Midline neck to slightly right side: hypoechoic area seen measuring 0.4 x 0.4 x 0.3 cm. IMPRESSION: Midline cystic lesion could reflect thyroglossal duct cyst. Correlate with noncontrast CT of the neck and correlate clinically.
== END | disposition home or self-care (01) ==
LOC: RADUSWWP 16:35
PROVIDERS: ATTEND Student in an Organized Health Care Education/Training Program
DX: R22.1 Localized swelling, mass and lump, neck (principal)
CPT/HCPCS: 76536

== ENCOUNTER → 2024-03-23 | Outpatient (CLI) | payer OTHER ==
--- NOTE | 2024-04-14 08:04 | MR ---
Patient: Loretta Chance M Ordering Physician: Dara Lenz ID: [id number] Phone, Pager: Phone: Pager : : [phone] Age/Gender: 43Y, F Primary Location: [id number] Procedure: US thyroid st tissue head/ne ck Study Date: 12/07/2023 4:34:57 PM EXAMINATION TYPE: MR neck wo/w con DATE OF EXAM: 04/10/2024 10:02 AM CLINICAL INDICATION: Pain headache right side of neck tenderness at COMPARISON: Thyroid ultrasound 12/07/2023. TECHNIQUE: Multi planar, multi sequence imaging was performed of the neck soft tissues. MR contrast: IV Contrast: cc 7 cc Gadavist FINDINGS: Cystic lesion just left of midline within the left neck muscle measuring 5 mm no abnormal p ostcontrast enhancement of this is high T2 low T1 signal. The glottis appears unremarkable. Several nonenlarged anterior chain lymph nodes are identified. There is no evidence to suggest a soft tissue mass. No abnormal inversion recovery signal/edema definitively visualized. The cervical vertebral bodies have preserved heights and alignment. Multilevel disc desiccation and anterior osteophytosis are present. The cervical spinal cord demonstrates a normal appearance. IMPRESSION: 1. Cystic lesion possibly representing thyroglossal duct cyst slightly left of midline that does not correlate with finding on ultrasound. Unclear if ultrasound is marked on wrong side. Consider short- term follow-up ultrasound for lesion seen on ultrasound. No suspicious masses. 2. No definitive evidence for soft tissue mass. 3. Minimal degenerative disc disease with associated osteoarthritic changes.
== END | disposition home or self-care (01) ==
LOC: RADMRIMAIN 08:15
PROVIDERS: ATTEND Student in an Organized Health Care Education/Training Program
DX: M50.30 Other cervical disc degeneration, unspecified cervical region (principal); R22.1 Localized swelling, mass and lump, neck; Q89.2 Congenital malformations of other endocrine glands
CPT/HCPCS: 70543; A9585